=== PATIENT | male | born 1955 | race Caucasian/White ===

== ENCOUNTER 2025-05-21 14:24 | Inpatient (IN) | payer OTHER ==
[2025-05-21] MEDS ORDERED: METHOCARBAMOL 500 MG TABLET ONE (15:19)
[2025-05-21] MEDS ORDERED: LIDOCAINE 5% TOPICAL PATCH ONE (15:19)
[2025-05-21] MEDS: LIDOCAINE 5% TOPICAL PATCH TP ONE (15:21)
[2025-05-21] MEDS: METHOCARBAMOL 500 MG TABLET PO ONE (15:21)
[2025-05-21 16:08] LABS: EPITHELIAL CELLS 0-5 /hpf
[2025-05-21] MEDS: CEFTRIAXONE 1,000 MG in DEXTROSE 5%-WATER - 50 ML IVPB ONE (17:40)
[2025-05-21 18:01] LABS: MCHC 33.2 g/dl (32.3-36.5); MEAN CELL VOLUME 93.6 fl (79.0-92.2); MEAN PLT VOLUME 8.7 fl (9.4-12.4); RDW 11.6 % (12.2-16.4)
[2025-05-21 18:13] LABS: ALK PHOS 67.0 U/L (45-117); CO2 26.0 mmol/L (21-32); CREATININE 2.6 mg/dl (0.6-1.3); GLUCOSE,RANDOM 130.0 mg/dl (74-106); SGOT/AST 12.0 U/L (15-37); SGPT/ALT 27.0 U/L (7-52); TOT PROT 6.5 g/dl (6.4-8.2)
[2025-05-21] MEDS: LACTATED RINGERS SOLUTION 1,000 ML/1,000 ML INFUS.BAG IV SCH (20:42)
[2025-05-21 21:05] VITALS: BMI 26.6
[2025-05-21] MEDS: LIDOCAINE PATCH REMOVAL MC SCH (21:10)
[2025-05-22] MEDS: MELATONIN 5 MG TABLETS PO PRN (00:48)
[2025-05-22] MEDS: SODIUM CHLORIDE 1,000 ML IV SCH (00:48)
[2025-05-22 08:16] LABS: ABSOLUTE IMMATURE GRANULOCYTES 0.05 x10^3/uL (0.0-0.031); BASOPHILS # 0.02 x10^3/uL (0.01-0.08); EOSINOPHIL % 0.1 % (0.8-7.0); EOSINOPHILS # 0.01 x10^3/uL (0.04-0.54); MCHC 33.1 g/dl (32.3-36.5); MEAN CELL VOLUME 94.6 fl (79.0-92.2); MEAN PLT VOLUME 8.8 fl (9.4-12.4); MONOCYTE # 0.90 x10^3/uL (0.30-0.82); MONOCYTE % 8.2 % (5.3-12.2); RDW 11.7 % (12.2-16.4)
[2025-05-22 08:34] LABS: INR 1.35 (0.83-1.09); PROTHROMBIN TIME (PATIENT) 15.0 SEC (9.7-13.0)
[2025-05-22 08:37] LABS: ACTIVATED PTT 35.7 SECONDS (25.2-36.5)
[2025-05-22 08:39] LABS: ALK PHOS 60.0 U/L (45-117); CO2 28.0 mmol/L (21-32); CREATININE 1.8 mg/dl (0.6-1.3); GLUCOSE,RANDOM 115.0 mg/dl (74-106); SGOT/AST 8.0 U/L (15-37); SGPT/ALT 21.0 U/L (7-52); TOT PROT 5.9 g/dl (6.4-8.2)
[2025-05-22] MEDS: amLODIPine BESYLATE 2.5 MG TABLET (FP) PO SCH (09:34)
[2025-05-22] MEDS: CEFTRIAXONE 1 GM in DEXTROSE 5%-WATER - 50 ML IVPB SCH (09:35)
[2025-05-22] MEDS ORDERED: ENOXAPARIN NA (PORCINE) 40 MG/0.4 ML DISP.SYRIN SQ SCH (10:00)
[2025-05-22] MEDS ORDERED: MELATONIN 5 MG TABLETS PO PRN (14:20)
[2025-05-22] MEDS: ACETAMINOPHEN 500 MG TABLET (FP) PO PRN (14:25)
[2025-05-22] MEDS ORDERED: LIDOCAINE HCL 2% JELLY 11 ML TP ONE (14:45)
[2025-05-22] MEDS: SODIUM CHLORIDE 0.45% 1,000 ML IV SCH (15:53)
[2025-05-22] MEDS: LIDOCAINE HCL 2% JELLY 11 ML TP ONE (17:57)
[2025-05-22 20:08] VITALS: RESP 18
[2025-05-22] MEDS: diphenhydrAMINE HCL 25 MG CAPSULE (FP) PO PRN (22:08)
[2025-05-22] MEDS: HEPARIN NA (PORCINE) 5,000 UNITS/ML 1ML VIAL SQ SCH (22:11)
[2025-05-22] MEDS ORDERED: amLODIPine BESYLATE 2.5 MG TABLET (FP) PO SCH (23:25)
[2025-05-23 08:21] LABS: ABSOLUTE IMMATURE GRANULOCYTES 0.02 x10^3/uL (0.0-0.031); BASOPHILS # 0.04 x10^3/uL (0.01-0.08); EOSINOPHIL % 2.0 % (0.8-7.0); EOSINOPHILS # 0.16 x10^3/uL (0.04-0.54); MCHC 32.9 g/dl (32.3-36.5); MEAN CELL VOLUME 94.9 fl (79.0-92.2); MEAN PLT VOLUME 8.8 fl (9.4-12.4); MONOCYTE # 0.68 x10^3/uL (0.30-0.82); MONOCYTE % 8.6 % (5.3-12.2); RDW 11.6 % (12.2-16.4)
[2025-05-23] MEDS ORDERED: amLODIPine BESYLATE 10 MG TABLET (FP) PO SCH (08:37)
[2025-05-23 09:12] LABS: CO2 26.0 mmol/L (21-32); CREATININE 1.4 mg/dl (0.6-1.3); GLUCOSE,RANDOM 96.0 mg/dl (74-106)
[2025-05-23] MEDS: amLODIPine BESYLATE 10 MG TABLET (FP) PO SCH (09:29)
[2025-05-23 14:06] VITALS: BP 151/86; PULSE 78; TEMP 98
== END 2025-05-23 16:13 | disposition home or self-care (01) | DRG 699 ==
LOC: FER 14:24 → FM/S 17:23 → OBSVTOIN 19:32
PROVIDERS: ADMIT Internal Medicine; ATTEND Internal Medicine
DX: N13.9 Obstructive and reflux uropathy, unspecified (principal); N13.30 Unspecified hydronephrosis; N17.9 Acute kidney failure, unspecified; I10 Essential (primary) hypertension; D50.9 Iron deficiency anemia, unspecified; R33.9 Retention of urine, unspecified; M51.379 Other intervertebral disc degeneration, lumbosacral region without mention of lumbar back pain or lower extremity pain; M51.369 Other intervertebral disc degeneration, lumbar region without mention of lumbar back pain or lower extremity pain; G47.00 Insomnia, unspecified; D72.829 Elevated white blood cell count, unspecified; M79.3 Panniculitis, unspecified
CPT/HCPCS: 36415; 74176-TC; 76775-TC; 76856-TC; 80048; 80053; 81003; 81015; 83735; 84100; 84153; 84154; 85025; 85610; 85730; 87040; 87086; 93005; 99285-25; G0378